=== PATIENT | female | born 1980 | race Caucasian/White ===

== ENCOUNTER → 2017-01-18 | Outpatient (CLI) | payer BC ==
[~2017-01-18] MED LIST: MTR600X PO; PRENTAB26 PO
[2017-01-18 16:33] LABS: BASO % 0.1 %; BASO ABS # 0.01 K/uL (0-0.2); COMPLETE YES; EOS % 0.7 %; HEMATOCRIT 41.6 % (37-47); IG% 0.2 %; LYMPH % 17.3 %; MEAN CELL VOLUME 90.8 fL (80-100); MEAN CORPUSCULAR HEMOGLOBIN 31.7 pg (25-34); MEAN CORPUSCULAR HGB CONC 34.9 g/dl (32-36); MEAN PLATELET VOLUME 8.9 fL (7.4-10.4); MONO % 6.2 %; NEUT % 75.5 %; PLATELET COUNT 291 K/uL (130-400); RED BLOOD COUNT 4.58 M/uL (4.2-5.4); WHITE BLOOD COUNT 8.67 K/uL (4.8-10.8)
[2017-01-18 18:03] LABS: URINE APPEARANCE CLEAR (CLEAR); URINE BILIRUBIN NEG (NEG); URINE COLOR YELLOW; URINE NITRITE NEG (NEG); URINE SPECIFIC GRAVITY 1.009 (1.000-1.030); UROBILINOGEN NEG (NEG)
[2017-01-18 18:09] LABS: MANUAL MICROSCOPIC REQUIRED? NO; REVIEW REQ? NO
[2017-01-22 11:26] LABS: CHLAMYDIA TRACH RNA*** NOT DETECTED (NOT DETECTED); GC (NEIS GONORRHOEAE)RNA** NOT DETECTED (NOT DETECTED)
== END | disposition home or self-care (01) ==
LOC: C.LAB1850 15:18
PROVIDERS: ATTEND Obstetrics & Gynecology
DX: Z34.91 Encounter for supervision of normal pregnancy, unspecified, first trimester (principal)

== ENCOUNTER → 2017-01-18 | Outpatient (CLI) | payer BC | END | disposition home or self-care (01) | LOC: C.PAPS 09:18 | PROVIDERS: ATTEND Obstetrics & Gynecology | DX: O09.521 Supervision of elderly multigravida, first trimester (principal) ==

== ENCOUNTER → 2017-03-02 | Outpatient (CLI) | payer BC ==
[~2017-03-02] MED LIST changes: +ZNTT/150 PO
[2017-03-02 12:44] LABS: GTGD 50 Grams
== END | disposition home or self-care (01) ==
LOC: C.LAB1850 07:44
PROVIDERS: ATTEND Obstetrics & Gynecology
DX: O09.522 Supervision of elderly multigravida, second trimester (principal); Z3A.00 Weeks of gestation of pregnancy not specified

== ENCOUNTER → 2017-05-28 | Outpatient (CLI) | payer BC ==
[2017-05-28 10:41] LABS: GTGD 50 Grams
[2017-05-28 11:27] LABS: URINE APPEARANCE CLEAR (CLEAR); URINE BILIRUBIN NEG (NEG); URINE COLOR YELLOW; URINE EPITHELIAL CELL AUTO 20-30 /lpf (0-5); URINE NITRITE NEG (NEG); URINE SPECIFIC GRAVITY 1.016 (1.000-1.030); UROBILINOGEN NEG (NEG)
[2017-05-28 11:29] LABS: MANUAL MICROSCOPIC REQUIRED? NO; REVIEW REQ? NO
== END | disposition home or self-care (01) ==
LOC: C.LAB1850 08:14
PROVIDERS: ATTEND Obstetrics & Gynecology
DX: O09.522 Supervision of elderly multigravida, second trimester (principal); Z3A.00 Weeks of gestation of pregnancy not specified

== ENCOUNTER → 2017-07-23 | Outpatient (CLI) | payer BC | END | disposition home or self-care (01) | LOC: C.LABSPEC 18:00 | PROVIDERS: ATTEND Obstetrics & Gynecology | DX: O09.523 Supervision of elderly multigravida, third trimester (principal) ==

== ENCOUNTER 2017-08-12 15:12 | Inpatient (IN) | payer BC ==
[~2017-08-12] VITALS: Ht 167.6 cm; Wt 88.6 kg
[~2017-08-12 15:12] MED LIST changes: -ZNTT/150 PO
[2017-08-12] MEDS ORDERED: PENICILLIN G POTASSIUM IV 6 MU in DEXTROSE 5% 250ML IV SCH (16:15)
[2017-08-12] MEDS ORDERED: NURSING VERBAL MED ORDER ONE (16:15)
[2017-08-12 16:27] LABS: MEAN CELL VOLUME 89.4 fL (80-100); MEAN CORPUSCULAR HEMOGLOBIN 29.6 pg (25-34); MEAN CORPUSCULAR HGB CONC 33.2 g/dl (32-36); MEAN PLATELET VOLUME 9.1 fL (7.4-10.4); PLATELET COUNT 203 K/uL (130-400); RED BLOOD COUNT 4.25 M/uL (4.2-5.4)
[2017-08-12 17:20] VITALS: Ht 167.6 cm; Wt 88.6 kg
[2017-08-12] MEDS ORDERED: ZNTT/150 PO (17:25)
[2017-08-12] MEDS: MISOPROSTOLTAB 50 MCG TAB PO SCH ×2 (19:14→23:18)
[2017-08-12] MEDS: LACTATED RINGER'S 1000ML 1,000 ML IV SCH (20:49)
[2017-08-12] MEDS: PENICILLIN G POTASSIUM IV 3 MU in DEXTROSE 5% 100ML IV PRN (20:49)
[2017-08-13] MEDS: PENICILLIN G POTASSIUM IV 3 MU in DEXTROSE 5% 100ML IV PRN (00:51)
[2017-08-13] MEDS ORDERED: FENTANYL CITRATE INJ 50 MCG/1 ML 2 ML VIAL ONE (03:34)
[2017-08-13] MEDS ORDERED: BUPIVACAINE 0.25% 30 ML VIAL ONE (03:34)
[2017-08-13] MEDS ORDERED: FENTANYL 2MCG/ML ROPIV 1.25MG/ML 100ML BAG EPI ONE (03:34)
[2017-08-13] MEDS ORDERED: EpHEDrine SULFATE INJ 50 MG/ML AMP ONE (03:34)
[2017-08-13] MEDS ORDERED: NALOXONE HCL INJ 1 MG in SODIUM CHLORIDE 0.9% 1000ML 1,000 ML IV PRN (04:38)
[2017-08-13] MEDS ORDERED: LACTATED RINGER'S 1000ML 500 ML IV PRN (04:38)
[2017-08-13] MEDS ORDERED: NALOXONE HCL INJ 0.4 MG/1 ML VIAL/CARP IV PRN (04:45)
[2017-08-13] MEDS ORDERED: FENTANYL 2MCG/ML ROPIV 1.25MG/ML 100ML BAG EPI PRN (04:45)
[2017-08-13] MEDS ORDERED: EpHEDrine SULFATE INJ 50 MG/ML AMP IV PRN (04:45)
[2017-08-13] MEDS ORDERED: NALBUPHINE HCL INJ 10 MG/ML AMP IV PRN (04:45)
[2017-08-13] MEDS ORDERED: DiphenhydrAMINE HCL 50 MG/ML VIAL IV PRN (04:45)
[2017-08-13] MEDS ORDERED: ONDANSETRON INJ 2 MG/ML 2 ML VIAL IV PRN (04:45)
[2017-08-13] MEDS ORDERED: OXYTOCIN 30 UNITS/500ML NSS IV ONE (05:20)
[2017-08-13] MEDS ORDERED: HYDROCORTISONE ACETATE 25 MG SUPP PR PRN (06:00)
[2017-08-13] MEDS ORDERED: OXYCODONE/ACETAMINOPHEN 5-325 TAB PO PRN (06:00)
[2017-08-13] MEDS ORDERED: OXYTOCIN 30 UNITS/500ML NSS IV PRN (06:00)
[2017-08-13] MEDS ORDERED: LANOLIN OINT EXT PRN ×2 (06:00)
[2017-08-13] MEDS ORDERED: BENZOCAINE 20% AER SPR 82.5 GM CAN EXT PRN (06:00)
[2017-08-13] MEDS ORDERED: SUPERCREAM 0.870 % 15GM JAR EXT PRN (06:00)
[2017-08-13] MEDS: LACTATED RINGER'S 1000ML 1,000 ML IV SCH (07:41)
[2017-08-13] MEDS: MISOPROSTOLTAB 50 MCG TAB PO SCH ×2 (07:41→08:34)
[2017-08-13] MEDS: IBUPROFEN 600 MG TAB PO PRN ×4 (08:14→22:10)
[2017-08-13 08:55] VITALS: BP 124/71; PULSE 72; TEMP 36.8; O2SAT 99
--- NOTE | 2017-08-13 09:22 | Anesthesia Procedure Note ---
Anesthesia Epidural Removal Nt Date & Time Aug 13, 2017 at 09:22 Vital Signs Pain Intensity: 1.0 Notes Mental Status: alert / awake / arousable, participated in evaluation Nausea / Vomiting: adequately controlled Pain: adequately controlled Airway Patency, RR, SpO2: stable & adequate BP & HR: stable & adequate Hydration State: stable & adequate Neuraxial Anesthesia: was administered Anesthetic Complications: no major complications apparent, pt satisfied with anesthetic care Epidural: removed without complications, with tip intact
--- NOTE | 2017-08-13 10:01 | DELIVERY SUMMARY ---
DATE OF OPERATION: 08/13/2017 PREDELIVERY DIAGNOSES: 1. A 36-year-old G6, P3-0-2-3 at 39 weeks and 3 days. 2. Spontaneous rupture of membranes. POSTDELIVERY DIAGNOSES: 1. A 36-year-old G6, P3-0-2-3 at 39 weeks and 3 days. 2. Spontaneous rupture of membranes. PROCEDURE: Spontaneous vaginal delivery of a viable male . ESTIMATED BLOOD LOSS: 300 mL. FINDINGS: Viable male . Apgars 8 and 9, weight pending, please see nursery record. Nuchal cord x1 easily reduced. First-degree perineal laceration hemostatic, not requiring repair. DESCRIPTION OF DELIVERY: The patient progressed to complete with epidural anesthesia and began to push. She then spontaneously vaginally delivered a viable male from the cephalic presentation, the head delivered in the left occiput anterior position. The nuchal cord x1 was noted and easily reduced. The anterior shoulder delivered followed by the posterior shoulder with a small compound hand followed by the body. The baby was stimulated and placed on mother's abdomen and a spontaneous cry was heard. Delayed cord clamping was employed and the cord was then doubly clamped and cut after 1 minute delay. Cord blood was obtained. The placenta was delivered spontaneously intact with a 3-vessel cord. The uterus and vagina were sept of all clots and debris. Pitocin was given. The uterus became firm. The cervix, vagina and perineum were inspected and a first-degree perineal laceration that was hemostatic was noted and patient elected not to have that repaired. Excellent hemostasis was observed. Mother and baby recovered well in the room in stable and good condition. Sponge, instrument and needle counts were correct at the conclusion of the delivery x2. I attest to the content of the Intraoperative Record and any orders documented therein. Any exception s are noted below.
[2017-08-13] MEDS: DOCUSATE SODIUM 100 MG CAP PO SCH ×2 (10:13→20:26)
[2017-08-13 12:00] VITALS: BP 115/71; PULSE 83; TEMP 36.5; O2SAT 99
[2017-08-13] MEDS ORDERED: NURSING VERBAL MED ORDER ONE (13:15)
[2017-08-13 15:50] VITALS: BP 106/70; PULSE 87; TEMP 36.9; O2SAT 98
[2017-08-13 19:30] VITALS: BP 114/70; PULSE 70; TEMP 36.8; O2SAT 98
[2017-08-14] VITALS: BP 109/71; PULSE 84; TEMP 36.9; O2SAT 97
[2017-08-14 03:40] VITALS: BP 96/60; PULSE 81; TEMP 36.7; O2SAT 97
[2017-08-14 06:19] LABS: HEMATOCRIT 31.4 % (37-47)
--- NOTE | 2017-08-14 06:46 | Progress Note ---
Subjective Aug 14, 2017. Subjective conversation w/ patient, physical exam, chart review, lab review Ambulation: ambulating normally Voiding: no voiding problems Passing Gas: Yes Diet Tolerance: Regular Diet Lochia: Small Feeding Type: Breast Feeding Pain: Says minimal low cramping Comment: Found pt resting comfortably, denies any acute concerns. Review of Systems Constitutional: No fever, No chills Respiratory: No cough, No shortness of breath Cardiac: No chest pain Abdomen: No nausea, No vomiting, No diarrhea Female : No dysuria Objective Vital Signs Date Time Temp Pulse Resp B/P (MAP) Pulse Ox O2 Delivery O2 Flow Rate FiO2 08/14/17 03:40 36.7 81 16 96/60 (72) 97 Room Air 08/14/17 00:00 36.9 84 18 109/71 (84) 97 Room Air 08/14/17 00:00 Room Air 08/13/17 19:30 36.8 70 20 114/70 (85) 98 Room Air 08/13/17 15:50 Room Air 08/13/17 15:50 36.9 87 18 106/70 (82) 98 Room Air 08/13/17 12:00 36.5 83 16 115/71 (86) 99 Room Air 08/13/17 08:55 Room Air 08/13/17 08:55 36.8 72 16 124/71 (88) 99 Room Air Physical Exam General Appearance: WELL-APPEARING, WD/WN, NO APPARENT DISTRESS Respiratory/Chest: lungs clear, normal breath sounds, no respiratory distress Cardiovascular: regular rate, rhythm, no murmur Abdomen: normal bowel sounds, non tender, soft Fundus: Firm, Non-Tender, Relation to Umbilicus (at umbilicus) Extremities: normal range of motion, non-tender, no calf tenderness, + pedal edema (1+ on right, none on left (pt says same as pre-delivery) ) Laboratory Results Last 24 Hours Test 08/14/17 05:53 Hemoglobin 10.5 g/dL Hematocrit 31.4 % Assessment and Plan Post- Day#: 1 Continue Routine Care: 36F s/p , now PPD #1. - Blood type O positive. GBS positive, s/p abx x2. Rubella immune. - Vital signs reviewed and stable. - Pain controlled with motrin. - Mild right leg swelling without tenderness on calf palpation, unchanged from pre-delivery. Encourage ambulation. - Encourage breast feeding. - Hemoglobin pre-delivery 12.6, post-delivery 10.5. Bleeding has improved. Continue to monitor clinically. - Continue routine post-vaginal delivery care. - Pt agreed with above plan, all current questions answered. Roe Suarez MD, PGY1 [employer] Le[employer] Manager Physician Supervision Note: I interviewed and examined the patient. Discussed with Dr. Suarez and agree with findings and plan as documented in the note. Any exceptions or clarifications are listed here: [None] Documented By: Jory Beverly Resident Tracking Resident Involvement: Resident Care Provided Care Provided: OB Delivery (OB rounds)
[2017-08-14] MEDS: DOCUSATE SODIUM 100 MG CAP PO SCH ×2 (07:25→19:49)
[2017-08-14 07:45] VITALS: BP 108/70; PULSE 72; TEMP 36.6; O2SAT 100
[2017-08-14] MEDS: IBUPROFEN 600 MG TAB PO PRN ×4 (08:06→22:43)
[2017-08-14 11:57] VITALS: BP 106/70; PULSE 82; TEMP 37; O2SAT 96
[2017-08-14 16:00] VITALS: BP 104/72; PULSE 90; TEMP 36.7; O2SAT 98
[2017-08-14] MEDS ORDERED: BISACODYL 5 MG TABEC PO SCH (20:00)
[2017-08-14 23:05] VITALS: BP 99/64; PULSE 85; TEMP 36.7
[2017-08-15] MEDS: IBUPROFEN 600 MG TAB PO PRN (05:54)
[2017-08-15] MEDS ORDERED: BISACODYL 10 MG SUPP PR PRN (07:00)
--- NOTE | 2017-08-15 07:26 | Progress Note ---
Subjective Aug 15, 2017. Subjective conversation w/ patient, physical exam, chart review, lab review Ambulation: ambulating normally Voiding: no voiding problems Passing Gas: Yes Diet Tolerance: Regular Diet Lochia: Small Feeding Type: Breast Feeding Pain: Minimal cramping with nursing Comment: Found pt resting comfortably, denies any acute concerns. Review of Systems Constitutional: No fever, No chills Respiratory: No cough, No shortness of breath Cardiac: No chest pain, No edema Abdomen: No nausea, No vomiting, No diarrhea Female : No dysuria Objective Vital Signs Date Time Temp Pulse Resp B/P (MAP) Pulse Ox O2 Delivery O2 Flow Rate FiO2 08/14/17 23:05 36.7 85 18 99/64 (76) Room Air 08/14/17 23:05 Room Air 08/14/17 16:00 98 Room Air 08/14/17 16:00 36.7 90 16 104/72 (83) 98 Room Air 08/14/17 12:50 Room Air 08/14/17 11:57 37.0 82 18 106/70 (82) 96 Room Air 08/14/17 08:00 Room Air 08/14/17 07:45 36.6 72 18 108/70 (83) 100 Room Air 08/14/17 07:45 100 Room Air Physical Exam General Appearance: WELL-APPEARING, WD/WN, NO APPARENT DISTRESS Respiratory/Chest: lungs clear, normal breath sounds, no respiratory distress Cardiovascular: regular rate, rhythm, no edema Abdomen: normal bowel sounds, non tender, soft Fundus: Firm, Non-Tender, Relation to Umbilicus (approx one down) Extremities: normal range of motion, no pedal edema, no calf tenderness Assessment and Plan Post- Day#: 2 Continue Routine Care: 36F s/p , now PPD #2. - Blood type O positive. GBS positive, s/p abx x2. Rubella immune. - Vital signs reviewed and stable. - Pain controlled with motrin. - No present distal leg swelling (B). No tenderness on calf palpation (B). Encourage ambulation. - Encourage breast feeding. - Hemoglobin pre-delivery 12.6, post-delivery 10.5. Continue to monitor clinically. - Continue routine post-vaginal delivery care. Discharge precautions reviewed with pt. - Pt agreed with above plan, all current questions answered. Roe Suarez MD, PGY1 Kitchen Hand Physician Supervision Note: I interviewed and examined the patient. Discussed with Dr. Suarez and agree with findings and plan as documented in the note. Any exceptions or clarifications are listed here: Doing well. Plan d/c. Instructions given. Documented By: Nayana Marmolejo Resident Tracking Resident Involvement: Resident Care Provided Care Provided: OB Delivery (OB rounds)
--- NOTE | 2017-08-15 07:27 | Discharge Instructions ---
Discharge Instructions Date of Service Aug 15, 2017. Admission Reason for Admission: Check Rupture Discharge Discharge Diagnosis / Problem: Recovery from vaginal delivery Discharge Goals Goal(s): Routine recovery after delivery Medications Continue Dispensed Medications: supercream, dermaplast, tucks, lansinoh Activity Recommendations Activity Limitations: per Instructions/Follow-up section . Instructions / Follow-Up Instructions / Follow-Up ACTIVITY RECOMMENDATIONS: * Gradual return to full activity over the next 2-3 weeks. * No lifting - nothing heavier than baby over the next 2-3 weeks. * Do not engage in vigorous exercise, sexual activity or sports until cleared by your physician. * Do not drive or operate any motorized equipment until cleared by your physician. * You may shower/bathe daily. MEDICATIONS: For discomfort or pain, you may use Acetaminophen (Tylenol), Ibuprofen (Advil), or Naproxen (Aleve) following the package directions. For constipation you may use Colace following the package directions. BREAST CARE: If you are not breast feeding: * Wear a supportive bra 24 hours a day for one to two weeks. * Avoid stimulating your breasts and nipples as much as possible during the first few weeks after delivery. * When taking a shower, have the warm water hit your back, not breasts. * When your breasts feel full, apply ice packs. Usually three to four times a day helps ease the discomfort. * Take a mild pain medication (Tylenol / Motrin) when you are uncomfortable. If breast feeding: * Use breast milk to lubricate nipples. Lansinoh cream may be used for sore nipples. You do not need to remove cream prior to breast feeding. If using a different brand of cream, check the label for directions regarding removal of cream prior to nursing. * Wear a supportive bra. * If having problems with breasts or breast feeding, call a computing consultant or your health care provider. EPISIOTOMY CARE: After delivery, if you have an episiotomy (stitches), the following steps will ease discomfort and aid healing. * For the first 24 hours after delivery, place ice packs next to your episiotomy to help reduce swelling. * After the first 24 hour-period, sitz baths, either portable or in the tub, are suggested. A shower with a shower arm sprayed over the episiotomy may be comforting. * Whit care should be done after each voiding and bowel movement. Squirt warm water from a plastic bottle over the perineum (region of the body between the anus and urinary opening) and pat dry. * Use Dermoplast to ease discomfort. Shake container. [place] directly over the episiotomy. Place a Tucks on a clean sanitary pad next to your episiotomy. SPECIAL CARE INSTRUCTIONS: When you are discharged from the hospital, it is important for you to follow the instructions listed below: * During the first week at home, you should be able to care for yourself and your baby. In addition, the usual light household activities are encouraged. * Limit your activities to the way you feel. Do not try to clean the house or move furniture. Be sensible. * If you actively engage in sports and have done so up until the time of your delivery, you may resume these activities as soon as you feel able. This may take up to one month or even longer. Use good judgment. * Continue to take your vitamins for at least six weeks after the of your baby. * Your diet need not be limited unless you were on a special diet before your delivery. Breast-feeding mothers need around 2500 calories per day and at least 64-80 ounces of fluid per day (8 to 10 glasses). * You should eat foods from the four major food groups. Crash diets or fad diets are to be avoided. Eating lean meats, fresh fruits and vegetables, low-fat dairy products, high fiber foods and a regular exercise program, will help you get back to your pre- weight without putting your health at risk. * Constipation is sometimes a problem after delivery. Take a mild laxative as needed. If breast feeding, Milk of Magnesia is acceptable to use. You may use a suppository or Fleets enema if no episiotomy. * A daily shower or tub bath is suggested. Be sure to thoroughly and gently dry the perineum. * A bloody vaginal discharge will usually continue until around four weeks post . A small amount of bleeding may continue for as long as six weeks. Vaginal discharge changes from the bright red bleeding after delivery to pink then brownish and finally yellowish-pink before becoming white and disappearing. * Bleeding may increase with activity. Your first period may come in 4-8 weeks. If you are breast feeding, your period may be delayed even longer. * [place] (sex) can begin whenever both you and your partner feel comfortable and do not have any form of genital infection. It is recommended that you wait at least six weeks for internal and external healing to occur. If you have questions, please talk to your health care practitioner. A condom should be used to prevent infection and . * Foreplay, gentle intercourse and lubrication is very important the first several times to prevent pain. A water-based lubricant such as K-Y jelly or Astroglide may be used. * If you have RH negative blood and your baby is RH positive, you will receive RHOGAM by injection prior to discharge. The nurse will give you a card to keep with you that has the date and place that you received RHOGAM after delivery. * During your care, you had a Rubella screen done to check for the presence of rubella antibodies in your blood. If your test was negative, you will receive a Rubella vaccine prior to discharge. This vaccine may cause a fever, soreness at the injection site and flu-like symptoms. If these symptoms persist, notify your health care practitioner. is not advised for one month after a Rubella vaccine. * Verbalizes understanding of car seat law as reviewed with patient nursing. * Car Seat hand-out given and reviewed with patient by nursing. * Shaken baby information reviewed with patient by nursing. Call you doctor if: * Heavy bleeding (saturating several pads an hour) or passing clots the size of your fist. * A fever >101 degrees F (38.3 degrees C) on two occasions four hours apart and /or chills. * Unusual pain in the pelvic or vaginal areas. * "Baby Blues" lasting longer than two weeks. If you have any questions or concerns, call your health care practitioner at . FOLLOW UP VISIT: * Please call the office at to schedule a 6 week examination. It is important you keep this appointment. It is important for you to make arrangements for either yearly or twice yearly check-ups thereafter. Current Hospital Diet Patient's current hospital diet: Regular OB Diet Discharge Diet Recommended Diet: Regular OB Diet Pending Studies Studies pending at discharge: no Medical Emergencies . Who to Call and When: Medical Emergencies: If at any time you feel your situation is an emergency, please call [phone] immediately. . Non-Emergent Contact Non-Emergency issues call your: [employer] . . "Provider Documentation" section prepared by Roe Suarez. . VTE Core Measure Inpt VTE Proph given/why not?: Treatment not indicated
[2017-08-15] MEDS: DOCUSATE SODIUM 100 MG CAP PO SCH (08:18)
[2017-08-15 08:30] VITALS: BP 113/78; PULSE 89; TEMP 37.1
[2017-08-15 10:45] VITALS: BP_DIAS 78; PULSE 89; TEMP 37.1
== END 2017-08-15 11:00 | disposition home or self-care (01) | DRG 775 ==
LOC: C.OPB 15:12 → C.LD 15:13 → C.OPB 16:21 → C.LD 16:22 → C.OBG 08-13 10:03
PROVIDERS: ADMIT Obstetrics & Gynecology; ATTEND Obstetrics & Gynecology
PROC: 10E0XZZ Delivery of Products of Conception, External Approach (ICD-10-PCS; principal; 2017-08-13)
DX: O99.824 Streptococcus B carrier state complicating childbirth (principal); Z37.0 Single live birth; Z3A.39 39 weeks gestation of pregnancy; O69.81X0 Labor and delivery complicated by cord around neck, without compression, not applicable or unspecified; O09.523 Supervision of elderly multigravida, third trimester